=== PATIENT | female | born 1980 | race Caucasian/White ===

== ENCOUNTER → 2025-09-02 12:19 | Outpatient (REF) | payer OTHER, SELFPAY | LOC: RAD 12:19 | PROVIDERS: ATTENDING PHYSICIAN Nurse Practitioner Adult Health | DX: R19.7 Diarrhea, unspecified (principal) | CPT/HCPCS: 74177; Q9967 ==

== ENCOUNTER 2025-09-16 06:19 | Day surgery (SDC) | payer OTHER, SELFPAY | END 2025-09-16 12:35 | disposition home or self-care (01) | LOC: GI 06:19 | PROVIDERS: ATTENDING PHYSICIAN Internal Medicine Gastroenterology | DX: R19.4 Change in bowel habit (principal); K52.9 Noninfective gastroenteritis and colitis, unspecified; K64.8 Other hemorrhoids; K57.30 Diverticulosis of large intestine without perforation or abscess without bleeding; K52.832 Lymphocytic colitis | CPT/HCPCS: 45380; 88305 ==